=== PATIENT | female | born 1995 | race Caucasian/White ===

== ENCOUNTER 2016-07-21 15:07 | Inpatient (IN) ==
[2016-07-21] MEDS ORDERED: Ringers Solution, Lactated 1,000 ML IVC SCH (15:30)
[2016-07-21] MEDS ORDERED: Famotidine 20 MG/2 ML VIAL IVP PRN (15:30)
[2016-07-21] MEDS ORDERED: Naloxone 0.4 MG/ML INJ IVP PRN (15:30)
--- NOTE | 2016-07-21 15:55 | OB/GYN History & Physical ---
Date of Encounter: 07/21/16 Time of Encounter: 15:50 Assessment and Plan (1) 39 weeks gestation of Current visit: Yes Status: Acute -monitor for labor progression - consider duran for cervical ripening History of Present Illness HPI: Ms. Rita Freeman is a 21 year old female at 39 weeks and 6 days who is sent to the hospital for spontaneous laboring. She has smoked cigarettes throughout . She denies any other complications throughout her . She denies any SROM or vaginal leaking. She is complaining of mild contractions. Her cervix is 3-4 cm at the opening, but narrows to 1 cm near the head. Past Med Surg Social Fam HX - Past Medical History Medical history: no medical history Psychiatric history: anxiety, depression - Social History Smoking Status: Never smoker Smokeless Tobacco Status: No Alcohol use: none Drug use: none Obstetrical History - Pregnancies : 1 Para: 0 Medications and Allergies Acetaminophen [Tylenol] 650 mg PO Q6HR PRN 07/21/16 [History] [id number]/Iron Fumarate/FA/Dss [ 19 Tablet] 1 tab PO DAILY 07/21/16 [ History] Allergies No Known Allergies Allergy (Verified 05/16/16 12:23) Review of System OB All systems PM: reviewed and no additional remarkable complaints except as stated - Constitutional Constitutional ROS IM: headache(s) (intermittent throughout pregnanacy. None today), no fever(s) - Nose, mouth, and throat Nose, mouth and throat: no dizziness, no dysphagia, no vertigo - Cardiovascular Cardiovascular: pedal edema (after standing all day. Not at this time), no chest pain, no dyspnea, no lightheadedness - Respiratory Respiratory: no cough, no dyspnea, no chest congestion - Gastrointestinal Gastrointestinal: no abdominal pain, no cramping, no diarrhea, no hematemesis, no hematochezia, no loose stools, no melena, no nausea, no vomiting - Genitourinary Genitourinary: amenorrhea, no vaginal discharge - Integumentary Integumentary: no rash - Neurological Nerological: no dizziness, no loss of vision, no syncope Exam - Constitutional Constitutional: well developed, well nourished, no acute distress, average body habitus - HEENT HEENT: EOMI, PERRL, Normocephaly, Mucus Membranes Moist - Neck Neck exam: full ROM, normal inspection, trachea midline - Lungs Respiratory exam: CTAB - Cardiovascular Cardiovascular exam: RRR - Abdomen Abdomen: Present: bowel sounds normal, gravid, non tender - Extremities Extremities exam: normal capillary refill Deep Tendon Reflex Grade: 2+ Normal - Vagina Vagina: Present: normal moisture - Cervix Dilation: 1 Effacement: 50 Station: -3 - Uterus Uterus exam: Present: normal size, normal contour Results All other labs normal. - VTE Reasons for not Prescribing Prophylaxis: Treatment not Indicated - Low risk for VTE
[2016-07-21 16:17] LABS: Basophils % 0.3 %; Eosinophils % 0.3 %; Hematocrit 26.5 % (35.3-44.9); Hemoglobin 8.8 g/dL (11.5-15.4); Immature Granulocytes % 0.6 % (0-4); Mean Corpuscular HGB Conc 33.2 g/dL (31.6-35.5); Mean Corpuscular Hemoglobin 27.8 pg (28.0-33.3); Mean Corpuscular Volume 83.9 fL (83.0-100.0); Monocytes # 0.7 K/mcL (0.0-1.3); Monocytes % 6.1 %; Neutrophils # 8.4 K/mcL (1.6-8.9); Platelet Count 249 K/mcL (140-400); Red Blood Count 3.16 M/mcL (3.82-4.97); Red Cell Distribution Width 13.5 % (11.5-14.5); Segmented Neutrophils % 74.7 %
--- NOTE | 2016-07-21 16:29 | Anesthesia Evaluation PreOp ---
Date of Encounter: 07/21/16 Time of Encounter: 16:21 - Past History Planned Operation: vaginal del, , 39wk induction Cardiac History: Denies any Significant Hx Pulmonary History: Denies Any Significant HX STABBER History: Denies Any Significant HX, Other (left vaginal/inner thigh occ pain non-radiating not positional dependent) Other Medical History: Denies Any Significant HX Anesthesia History: No Prior Anesthetic Complications, Past Anesthesia Alcohol Use: none Drug use: none Medications and Allergies Acetaminophen [Tylenol] 650 mg PO Q6HR PRN 07/21/16 [History] [id number]/Iron Fumarate/FA/Dss [ 19 Tablet] 1 tab PO DAILY 07/21/16 [ History] Allergies No Known Allergies Allergy (Verified 05/16/16 12:23) Anesthesia Results - Labs 07/21/16 15:40 Anesthesia Exam - HEENT Pupil (Motor): Pupils equal Mallampati: II Teeth: Normal Oral Opening: Greater than 3 - STABBER LOC: Oriented STABBER Motor: Normal RUE, Normal LUE, Normal RLE, Normal LLE, Normal Face STABBER Sensory: Normal: RUE, LUE, RLE, LLE, Face - Cardiac Rhythm: Regular - Pulmonary Breath Sounds: bilateral Clear Respiratory Effort: Symmetrical Anesthesia Assess/Plan ASA Score: 2 Modified Sammy Scale for Level of Consciousness: Cooperative, oriented, and tranquil Anesthetic Plan: General, Regional Monitoring Plan: Standard Monitors
[2016-07-21 16:33] LABS: Alanine Aminotransferase 6 Units/L (0-55); Aspartate Amino Transferase 11 Units/L (5-34); BUN/Creatinine Ratio 9 (6-26); Lactate Dehydrogenase 145 Units/L (159-327); Uric Acid 3.3 mg/dL (2.6-6.0); eGFR For African Americans > 60 (> 60); eGFR For Non-African Americans > 60 (> 60)
[2016-07-21 16:34] LABS: Blood Urea Nitrogen 5 mg/dL (7-20)
[2016-07-21] MEDS ORDERED: *HR* Labetalol 20 MG/4 ML SYRINGE IVP ONE ×2 (17:00→17:02)
[2016-07-21] MEDS ORDERED: Epidural Premix (fent/bupiv) 110 ML EP ONE (18:25)
--- NOTE | 2016-07-22 00:18 | OB Labor Progress Note ---
Date of Encounter: 07/22/16 Time of Encounter: 00:15 Labor Progress Note - Subjective Subjective: Pt with mild uc's q 2-4 min. No VB or LOF. She declines repeat attempt at duran. - Vital Signs Vital Signs: 148/92 - Cervix Cervix: 2/70/-2 - Heart Tones Heart Tones: RNST - Interventions Interventions: Will begin Pitocin. - Plan Plan: Expect
[2016-07-22] MEDS ORDERED: Oxytocin 20 units/ LR 1000 mL 20 UNIT/1,000 ML BAG IVC SCH (00:28)
[2016-07-22] MEDS ORDERED: *HR* Labetalol 20 MG/4 ML SYRINGE IVP ONE ×2 (01:28→01:29)
--- NOTE | 2016-07-22 04:12 | OB Labor Progress Note ---
Date of Encounter: 07/22/16 Time of Encounter: 04:10 Labor Progress Note - Subjective Subjective: Pt comfortable, BP improved s/p Labetalol # 2. - Cervix Cervix: 3/80/-2 - Heart Tones Heart Tones: RNST - [place]: uc's q 2-3 min - Interventions Interventions: AROM ? light MSF without difficulty. - Plan Plan: Expect
--- NOTE | 2016-07-22 05:18 | Anesthesia Procedures ---
Date of Encounter: 07/22/16 Time of Encounter: 05:04 Procedures: Anesthesia - Epidural/Spinal Patient ID/Chart reviewed: Yes Patient examined: Yes OB Eval: Gestational age: term OB Eval: : 1 OB Eval: Hx Para: 0 OB Eval: Contractions: Non-stressed pattern Consent Obtained: Yes Supplemental Oxygen: None/Room Air Site Prep: Aseptic Technique, Sterile prep and drape, 0.5% Chlorhexidine/Alcohol Patient position: upright Local Anesthetic: Lidocaine 1% Amount of Local Anesthetic used: 2 Touhy Needle Gauge: 18 Touhy Needle Depth (cm): 6 Test Dose Result: Negative Loading Dose: Other: 12ml from solution Loading Dose Administered: Thru Catheter Infusion Med: 0.125% Bupivacaine w/ 2 mcg/ml Fentanyl Infusion Rate (mls/hr): [address]: Tegaderm, Tape Interspace Used: L3-L4 Loss of Resistance (MG): Yes (saline) Blood: No CSF: No Paresthesia: No Vitals + FHT's: vss though out, FHR stable per RN's
[2016-07-22] MEDS: Ondansetron 4 MG/2 ML VIAL IVP PRN ×2 (05:35→12:03)
[2016-07-22] MEDS ORDERED: *HR* Phenylephrine 10 MG/ML VIAL ONE (05:37)
--- NOTE | 2016-07-22 08:43 | OB Labor Progress Note ---
Date of Encounter: 07/22/16 Time of Encounter: 08:41 Labor Progress Note - Subjective Subjective: Patient comfortable with epidural. She denies any shortness of breath. She reports feeling rectal pressure. She is requesting to have her chucks changed - Vital Signs Vital Signs: Afebrile, blood pressure labile - Cervix Cervix: 4/90/0, vertex - Heart Tones Heart Tones: 120s baseline, CAT 1 - [place]: Ctx q 2' on 1 milliunit of Pitocin - Interventions Interventions: 39 week IUP with augmentation. Labile blood pressure, PIH labs normal, status post labetalol, history of anxiety. Meconium stained amniotic fluid - Plan Plan: Now with epidural doing well. IUPC placed. Pitocin DC'd. Continue to monitor blood pressures and treat as needed. Respiratory for delivery
--- NOTE | 2016-07-22 10:50 | OB Labor Progress Note ---
Date of Encounter: 07/22/16 Time of Encounter: 10:47 Labor Progress Note - Subjective Subjective: Patient resting on left side requesting position change. Patient denies any pain but reports pressure. IUPC no reading correctly discussed replacing IUPC with patient. Patient denies any questions or concerns. - Cervix Cervix: 8/90/0 - Heart Tones Heart Tones: 115 bpm moderate variability +15x15 accels early decels noted. - Tat Momoli Tat Momoli: every 2 min - Interventions Interventions: SVE, IUPC placed without difficulty. Patient repositioned to right side. - Plan Plan: Continue labor management.
[2016-07-22] MEDS ORDERED: Epidural Premix (fent/bupiv) 110 ML EP ONE (12:50)
--- NOTE | 2016-07-22 14:18 | OB/GYN Procedure Note ---
Delivery - Delivery Date: 07/22/16 Provider: Erika Mead Intrapartum events: meconium Delivery induction: AROM, oxytocin Delivery augmentation: pitocin Delivery monitor: external FHT, external uterine, internal uterine Anesthesia: epidural Estimated Blood Loss: 200 - Infant (s) A Infant Delivery Date: 07/22/16 Delivery Time: 13:41 Presentation: vertex Position: [place] Route of delivery: Gender: Female Viability: Viable Pounds: 7 Ounces: 2 at 1 minute: 8 at 5 mins: 9 Shoulder Dystocia: not encountered Placenta: spontaneous, uterine exploration Cord: nuchal cord, 3 umbilical vessels - Repair Episiotomy: none ( ) Laceration Description: Perineal - 2nd Degree, Labial (Bilateral, superficial and not repaired), Superficial - Complications Delivery complications: none Delivery comments: The patient was complete and pushing with epidural anesthesia was a spontaneous vaginal delivery in the FLORENTIN position of a vigorous female weighing 7 lbs. 2 oz. with Apgars of 8 at 1 minute and 9 at 5 minutes. There was a nuchal cord x1 which was reduced on the perineum. The infant was bulb suctioned on the perineum or light meconium-stained amniotic fluid was noted. The was placed on the maternal abdomen and the cord was clamped cut after pulsations ceased. Cord segment was obtained. Placenta was delivered spontaneous and intact. The uterus was explored and there were no retained products of conception. There were bilateral superficial labial lacerations which were hemostatic and not repaired. There was a second-degree midline laceration which was repaired with 3-0 Vicryl in usual fashion. Estimated blood loss 200 mL complications none. Both mother and were recovering in stable condition in the LDR. - Disposition Mom disposition: stable in LDR Floyd disposition: stable in LDR
[2016-07-22] MEDS ORDERED: Lidocaine 1% 20 ML MDV ONE (15:55)
--- NOTE | 2016-07-22 16:22 | OB/GYN Progress Note ---
Date of Encounter: 07/22/16 Time of Encounter: 16:17 - Assessment and Plan (1) Status post vaginal delivery Current Visit: Yes Status: Acute Right labial laceration actively bleeding repaired with 4-0 vicryl. Subjective - Subjective Principal diagnosis: 2 hours pp Interval history: Called to LDR to check vaginal bleeding. Bleeding appears to becoming from right labial laceration. Discussed POC and treatment options for patient. Patient wishes to have laceration repaired. Patient was placed in stirrups and 1 % lidocaine was used to numb area. 4-0 vicryl was used for running stitch to repair right labial laceration. Patient tolerated well. Ice pack to perineum. Sharps removed from sterile field and counts were correct. Patient in LDR for recovery. : doing well Objective - Latest Vital Signs Latest vital signs: Intake and Output 07/22/16 07/22/16 07/22/16 07:59 15:59 23:59 Output Total 600 / 600 Balance -600 / -600 Output: Catheter 600 / 600 - Labs Labs: Laboratory Results - last 24 hr 07/21/16 07/21/16 15:40 15:40 WBC 11.2 H RBC 3.16 L Hgb 8.8 L Hct 26.5 L MCV 83.9 MCH 27.8 L MCHC 33.2 RDW 13.5 Plt Count 249 MPV 11.0 Immature Gran % 0.6 Seg Neutrophils % 74.7 Lymphocytes % 18.0 Monocytes % 6.1 Eosinophils % 0.3 Basophils % 0.3 Neutrophils # 8.4 Lymphocytes # 2.0 Monocytes # 0.7 Eosinophils # 0.0 Basophils # 0.0 BUN 5 L Creatinine 0.58 Est GFR ( Amer) > 60 Est GFR (Non-Af Amer) > 60 BUN/Creatinine Ratio 9 Uric Acid 3.3 AST 11 ALT 6 Lactate Dehydrogenase 145 L
[2016-07-22] MEDS ORDERED: Oxytocin 20 units/ LR 1000 mL 20 UNIT/1,000 ML BAG IV SCH (16:31)
[2016-07-22] MEDS ORDERED: Oxytocin 20 units/ LR 1000 mL 20 UNIT/1,000 ML BAG IVC ONE (16:31)
[2016-07-22] MEDS: Ibuprofen 600 MG TABLET PO PRN (17:27)
[2016-07-23 05:01] LABS: Basophils % 0.2 %; Eosinophils % 0.1 %; Hematocrit 22.8 % (35.3-44.9); Hemoglobin 7.5 g/dL (11.5-15.4); Immature Granulocytes % 0.8 % (0-4); Lymphocytes % 11.7 %; Mean Corpuscular HGB Conc 32.9 g/dL (31.6-35.5); Mean Corpuscular Hemoglobin 27.7 pg (28.0-33.3); Mean Corpuscular Volume 84.1 fL (83.0-100.0); Monocytes # 1.2 K/mcL (0.0-1.3); Monocytes % 6.7 %; Neutrophils # 13.8 K/mcL (1.6-8.9); Platelet Count 211 K/mcL (140-400); Red Blood Count 2.71 M/mcL (3.82-4.97); Red Cell Distribution Width 13.7 % (11.5-14.5); Segmented Neutrophils % 80.5 %
[2016-07-23 05:17] LABS: Alanine Aminotransferase 7 Units/L (0-55); Aspartate Amino Transferase 19 Units/L (5-34); BUN/Creatinine Ratio 11 (6-26); Blood Urea Nitrogen 7 mg/dL (7-20); Lactate Dehydrogenase 220 Units/L (159-327); Uric Acid 3.3 mg/dL (2.6-6.0); eGFR For African Americans > 60 (> 60); eGFR For Non-African Americans > 60 (> 60)
[2016-07-23] MEDS ORDERED: Lanolin 7 G OINT...G. TP PRN (06:29)
[2016-07-23] MEDS: Prenatal Vit/FA 1 EACH TABLET PO SCH (08:33)
[2016-07-23] MEDS: Acetaminophen 325 MG TABLET PO PRN ×2 (08:42→15:55)
--- NOTE | 2016-07-23 08:52 | OB/GYN Progress Note ---
Date of Encounter: 07/23/16 Time of Encounter: 08:50 - Assessment and Plan (1) Status post vaginal delivery Current Visit: Yes Status: Acute Continue routine care Possible discharge home tomorrow (2) Anemia Current Visit: Yes Status: Acute Increase Ferrous sulfate BID Qualifiers: Anemia type: unspecified type Qualified Code(s): D64.9 - Anemia, unspecified (3) hypertension Current Visit: Yes Status: Acute Labetalol 200mg PO TID Subjective - Subjective Principal diagnosis: day 1 Interval history: Patient resting in bed. Denies feeling dizzy or light headed. Patient reports light bleeding. Denies headache or visual disturbances. Patient reports: appetite normal, voiding normally, pain well controlled, ambulating normally : doing well, bottle feeding Objective - Latest Vital Signs Latest vital signs: Vital Signs Temp Pulse Pulse Resp BP Pulse Ox 07/23/16 08:32 97.9 F 94 16 167/92 97 07/23/16 03:00 98.2 F 78 78 14 154/95 100 07/22/16 22:45 98.0 F 75 16 155/90 99 07/22/16 18:30 98.2 F 77 16 137/74 99 07/22/16 17:30 98.1 F 101 14 140/78 99 07/22/16 16:30 98.4 F 64 14 163/91 99 Intake and Output 07/22/16 07/23/16 07/23/16 23:59 07:59 15:59 Intake Total 0 / 0 800 / 800 500 / 500 Output Total 1680 / 1680 300 / 300 Balance -1680 / -1680 800 / 800 200 / 200 Intake: Oral 0 / 0 500 / 500 Intake, Autotransfusion 800 / 800 Amount Output: Urine 1680 / 1680 300 / 300 Other: Weight 62.2 kg Patient Weight 07/23/16 23:59 Weight 62.2 kg - Exam Lungs: bilateral: normal Chest: Normal S1, Normal S2 Extremities: Present: normal Abdomen: Present: normal appearance, soft, gravid Uterus: Present: normal, firm Uterus Position: 1 Finger Below Umbilicus, Midline - Labs Labs: Laboratory Results - last 24 hr 07/23/16 07/23/16 04:40 04:40 WBC 17.1 H D RBC 2.71 L Hgb 7.5 L Hct 22.8 L MCV 84.1 MCH 27.7 L MCHC 32.9 RDW 13.7 Plt Count 211 MPV 11.0 Immature Gran % 0.8 Seg Neutrophils % 80.5 Lymphocytes % 11.7 Monocytes % 6.7 Eosinophils % 0.1 Basophils % 0.2 Neutrophils # 13.8 H Lymphocytes # 2.0 Monocytes # 1.2 Eosinophils # 0.0 Basophils # 0.0 BUN 7 Creatinine 0.61 Est GFR ( Amer) > 60 Est GFR (Non-Af Amer) > 60 BUN/Creatinine Ratio 11 Uric Acid 3.3 AST 19 ALT 7 Lactate Dehydrogenase 220
[2016-07-23 18:15] LABS: Hematocrit 22.7 % (35.3-44.9); Hemoglobin 7.2 g/dL (11.5-15.4)
[2016-07-24] MEDS: Ibuprofen 600 MG TABLET PO PRN ×2 (01:42→07:55)
[2016-07-24 06:31] LABS: Basophils % 0.3 %; Eosinophils % 0.3 %; Hematocrit 21.8 % (35.3-44.9); Immature Granulocytes % 0.6 % (0-4); Lymphocytes # 1.8 K/mcL (0.6-4.6); Lymphocytes % 16.9 %; Mean Corpuscular HGB Conc 32.1 g/dL (31.6-35.5); Mean Corpuscular Hemoglobin 27.3 pg (28.0-33.3); Mean Corpuscular Volume 85.2 fL (83.0-100.0); Mean Platelet Volume 10.7 fL (9.4-12.4); Monocytes # 0.6 K/mcL (0.0-1.3); Monocytes % 5.7 %; Neutrophils # 8.1 K/mcL (1.6-8.9); Platelet Count 190 K/mcL (140-400); Red Blood Count 2.56 M/mcL (3.82-4.97); Red Cell Distribution Width 13.8 % (11.5-14.5); Segmented Neutrophils % 76.2 %
[2016-07-24] MEDS: Prenatal Vit/FA 1 EACH TABLET PO SCH (07:55)
--- NOTE | 2016-07-24 10:11 | OB/GYN Progress Note ---
Date of Encounter: 07/24/16 Time of Encounter: 10:09 - Assessment and Plan (1) Status post vaginal delivery Current Visit: Yes Status: Acute Continue routine care Possible discharge home tomorrow (2) Anemia Current Visit: Yes Status: Acute Increase Ferrous sulfate BID Blood transfusion Qualifiers: Anemia type: unspecified type Qualified Code(s): D64.9 - Anemia, unspecified (3) hypertension Current Visit: Yes Status: Acute Labetalol 200mg PO TID (4) Breast feeding status of mother Current Visit: Yes Status: Acute support prn (5) Anxiety and depression Current Visit: Yes Status: Acute Will start Zoloft 50mg po daily Subjective - Subjective Principal diagnosis: day 2 Interval history: Patient crying when CNM came in room. Patient reports history of anxiety and depression since she was in the 8th grade. Patient is not currently on any medication. Will start Zoloft 50mg po. Patient denies feelings of hurting herself or others. Patient is breast feeding female infant. Patient reports light bleeding. Patient is currently receiving blood for low hgb with cbc to be repeated 4 hours after transfusion. Patient reports: appetite normal, voiding normally, pain well controlled, ambulating normally : doing well, nursing well Objective - Latest Vital Signs Latest vital signs: Vital Signs Temp Pulse Resp BP Pulse Ox 07/24/16 09:34 68 16 158/97 98 07/24/16 09:10 98.0 F 70 16 150/90 98 07/24/16 07:30 98.1 F 68 16 133/92 07/24/16 03:45 98.1 F 73 16 151/85 07/24/16 00:15 73 146/88 07/23/16 23:57 97.8 F 84 16 159/87 99 07/23/16 20:00 97.4 F L 65 16 144/96 100 07/23/16 16:00 97.7 F 65 16 136/90 99 07/23/16 12:05 97.9 F 90 16 140/95 98 Intake and Output 07/23/16 07/24/16 07/24/16 23:59 07:59 15:59 Intake Total 1100 / 1100 800 / 800 50 / 50 Output Total 950 / 950 1400 / 1400 Balance 150 / 150 -600 / -600 50 / 50 Intake: Oral 1100 / 1100 800 / 800 Blood Product 50 / 50 Rbcs Leuko Poor As-1 50 / 50 Unit [id number] Output: Urine 950 / 950 1400 / 1400 Other: Weight 59.109 kg Patient Weight 07/24/16 23:59 Weight 59.109 kg - Exam Lungs: bilateral: normal Chest: Normal S1, Normal S2 Extremities: Present: normal Abdomen: Present: normal appearance, soft Uterus: Present: normal, firm Uterus Position: 2 Fingers Below Umbilicus, Midline - Labs Labs: Laboratory Results - last 24 hr 07/23/16 07/23/16 07/24/16 17:21 17:21 06:08 WBC 10.6 RBC 2.56 L Hgb 7.2 L 7.0 L Hct 22.7 L 21.8 L MCV 85.2 MCH 27.3 L MCHC 32.1 RDW 13.8 Plt Count 190 MPV 10.7 Immature Gran % 0.6 Seg Neutrophils % 76.2 Lymphocytes % 16.9 Monocytes % 5.7 Eosinophils % 0.3 Basophils % 0.3 Neutrophils # 8.1 Lymphocytes # 1.8 Monocytes # 0.6 Eosinophils # 0.0 Basophils # 0.0 Blood Type A POSITIVE Antibody Screen NEGATIVE Crossmatch See Detail
[2016-07-24 21:20] LABS: Basophils % 0.3 %; Eosinophils % 0.3 %; Immature Granulocytes % 0.9 % (0-4); Lymphocytes # 1.3 K/mcL (0.6-4.6); Lymphocytes % 12.3 %; Mean Corpuscular HGB Conc 33.1 g/dL (31.6-35.5); Mean Corpuscular Hemoglobin 27.8 pg (28.0-33.3); Mean Corpuscular Volume 84.1 fL (83.0-100.0); Mean Platelet Volume 10.3 fL (9.4-12.4); Monocytes # 0.6 K/mcL (0.0-1.3); Monocytes % 5.8 %; Neutrophils # 8.6 K/mcL (1.6-8.9); Nucleated Red Blood Cells 0.2 /100 WBC (0); Platelet Count 230 K/mcL (140-400); Red Blood Count 3.45 M/mcL (3.82-4.97); Red Cell Distribution Width 14.1 % (11.5-14.5); Segmented Neutrophils % 80.4 %
[2016-07-24 21:21] LABS: Hemoglobin 9.6 g/dL (11.5-15.4)
[2016-07-25] MEDS: Ibuprofen 600 MG TABLET PO PRN (00:53)
[2016-07-25] MEDS ORDERED: *HR* Labetalol 20 MG/4 ML SYRINGE IVP ONE ×4 (01:16→02:00)
[2016-07-25] MEDS ORDERED: Ringers Solution, Lactated 1,000 ML ONE ×2 (01:31→14:11)
--- NOTE | 2016-07-25 01:41 | OB/GYN Progress Note ---
Date of Encounter: 07/25/16 Time of Encounter: 01:34 - Assessment and Plan (1) Status post vaginal delivery Current Visit: Yes Status: Acute I was called because patient had severe range pressures 190'/110's. She called out saying she didn't feel weel( she had just gone outside to smoke). I reviewed her vitals and she has steadily developed worsening HTN PP and was placed on Labetalol 200mg TID, I'm concerned about PP preeclampsia so we are drawing pre eclampsia labs inclding pr-cr ratio, We will start Mg for seizure ppx, insert duran for accurate measurement of urine , will increase labetalol to 400mg BID Objective - Latest Vital Signs Latest vital signs: Vital Signs Temp Pulse Pulse Resp BP Pulse Ox 07/24/16 20:30 66 07/24/16 19:45 98.4 F 77 16 159/95 98 07/24/16 12:51 97.8 F 16 162/88 98 07/24/16 12:38 98.4 F 68 16 157/92 98 07/24/16 12:35 98.5 F 78 16 155/92 07/24/16 09:34 68 16 158/97 98 07/24/16 09:10 98.0 F 70 16 150/90 98 07/24/16 07:30 98.1 F 68 16 133/92 07/24/16 03:45 98.1 F 73 16 151/85 Intake and Output 07/24/16 07/24/16 07/25/16 15:59 23:59 07:59 Intake Total 225 / 225 420 / 420 Output Total 1000 / 1000 Balance 225 / 225 -580 / -580 Intake: Oral 120 / 120 Blood Product 225 / 225 300 / 300 Rbcs Leuko Poor As-1 175 / 175 Unit [id number] Rbcs Leuko Poor As-1 50 / 50 300 / 300 Unit [id number] Output: Urine 1000 / 1000 Other: Meal Dinner Percent of Meal Consumed 70% Stool Characteristics Normal for Patient Weight 59.1 kg Patient Weight 07/25/16 23:59 Weight 59.1 kg - Labs Labs: Laboratory Results - last 24 hr 07/23/16 07/24/16 07/24/16 17:21 06:08 21:08 WBC 10.6 10.7 RBC 2.56 L 3.45 L Hgb 7.0 L 9.6 L D Hct 21.8 L 29.0 L MCV 85.2 84.1 MCH 27.3 L 27.8 L MCHC 32.1 33.1 RDW 13.8 14.1 Plt Count 190 230 MPV 10.7 10.3 Immature Gran % 0.6 0.9 Seg Neutrophils % 76.2 80.4 Lymphocytes % 16.9 12.3 Monocytes % 5.7 5.8 Eosinophils % 0.3 0.3 Basophils % 0.3 0.3 Neutrophils # 8.1 8.6 Lymphocytes # 1.8 1.3 Monocytes # 0.6 0.6 Eosinophils # 0.0 0.0 Basophils # 0.0 0.0 Nucleated RBCs/100 WBC 0.2 H Blood Type A POSITIVE Antibody Screen NEGATIVE Crossmatch See Detail
[2016-07-25 01:50] LABS: Basophils % 0.3 %; Eosinophils # 0.1 K/mcL (0.0-0.6); Eosinophils % 0.6 %; Hematocrit 28.8 % (35.3-44.9); Hemoglobin 9.5 g/dL (11.5-15.4); Lymphocytes # 1.7 K/mcL (0.6-4.6); Mean Corpuscular Hemoglobin 27.5 pg (28.0-33.3); Mean Corpuscular Volume 83.5 fL (83.0-100.0); Mean Platelet Volume 10.1 fL (9.4-12.4); Monocytes # 0.8 K/mcL (0.0-1.3); Monocytes % 6.4 %; Neutrophils # 9.2 K/mcL (1.6-8.9); Platelet Count 217 K/mcL (140-400); Red Blood Count 3.45 M/mcL (3.82-4.97); Red Cell Distribution Width 14.1 % (11.5-14.5); Segmented Neutrophils % 77.7 %
[2016-07-25 02:01] LABS: Alanine Aminotransferase 11 Units/L (0-55); Aspartate Amino Transferase 22 Units/L (5-34); BUN/Creatinine Ratio 15 (6-26); Blood Urea Nitrogen 10 mg/dL (7-20); Lactate Dehydrogenase 194 Units/L (159-327); eGFR For African Americans > 60 (> 60); eGFR For Non-African Americans > 60 (> 60)
[2016-07-25 02:02] LABS: Uric Acid 4.7 mg/dL (2.6-6.0)
[2016-07-25 02:11] LABS: Creatinine,Urine 38 mg/dL; Protein/Creatinine Ratio,Urine 0.18 mg/mg (0-0.20)
[2016-07-25] MEDS: Magnesium Sulfate 20 gm/500mL 20 GM/500 ML IV.SOLN IVC SCH ×3 (02:20→20:10)
[2016-07-25] MEDS ORDERED: Calcium Gluconate 1,000 MG/10 ML VIAL IVPB ONE (03:08)
[2016-07-25] MEDS: Prenatal Vit/FA 1 EACH TABLET PO SCH (08:06)
[2016-07-25] MEDS: Acetaminophen 325 MG TABLET PO PRN ×2 (12:42→20:09)
--- NOTE | 2016-07-25 14:24 | Event Note ---
<Selene Cunningham - Last Filed: 07/25/16 14:24> Date of Encounter: 07/25/16 Time of Encounter: 14:18 Patient is currently on 2g of magnesium due to elevated blood pressures (190 systolic) last night. This morning patient's blood pressures were improved in the 120s-130s/80s. This afternoon, patient reports worsening headache and blood pressures up slightly in the 140s/80s range. Patient reports that she has had a headache all day but that it is getting worse. She says that it is pain behind her eyes but she denies any changes in vision at this time. On exam , patient is awake and alert. Patellar reflexes are 2+ bilaterally, no clonus. Will continue magnesium at 2g for 24 hours (2am) and the labetalol at 400mg BID. Will continue to monitor blood pressures. If needed, we can increase labetalol dose for blod pressures. Continue seizure precautions and bed rest. <Erika Mead - Last Filed: 07/25/16 15:19> Date of Encounter: 07/25/16 I examined this patient and my medical decision-making was reviewed with the ROLL ON MAN/PA/Advanced Practice Nurse/Resident Physician. I agree with the documented findings, disposition and treatment plan as described except to the extent set forth below.
[2016-07-25] MEDS ORDERED: Ondansetron ODT 4 MG TAB.RAPDIS SL ONE (22:02)
--- NOTE | 2016-07-25 22:22 | Event Note ---
<Selene Cunningham - Last Filed: 07/25/16 22:23> Date of Encounter: 07/25/16 Time of Encounter: 22:15 Called to the patient's room by nursing because the patient became nauseous and vomited. Patient is still on 2g magnesium for seizure prophylaxis. Blood pressures have been running in the s 140s/80s-90s today. Patient reports that her headache is still there but it has improved. She states that she feels hot and nauseous. On, exam patient is awake and oriented. Patellar reflexes are 2 + bilaterally. She continues to have adequate urine output. Will decrease the Mg to 1g through the remainder of the 48hrs (2am tonight). Will give 8mg sublingual zofran for symptom control. Will continue to monitor patient's blood pressures, urine output and reflexes. <Erika Mead - Last Filed: 07/26/16 07:31> Date of Encounter: 07/26/16 I examined this patient and my medical decision-making was reviewed with the P[employer] PRESS TENDER/PA/Advanced Practice Nurse/Resident Physician. I agree with the documented findings, disposition and treatment plan as described except to the extent set forth below.
[2016-07-26] MEDS: Prenatal Vit/FA 1 EACH TABLET PO SCH (08:55)
[2016-07-26] MEDS: NIFEdipine XL (24 HR) 60 MG TAB.ER.24 PO SCH (09:25)
--- NOTE | 2016-07-26 10:57 | OB/GYN Progress Note ---
Date of Encounter: 07/26/16 Time of Encounter: 10:46 - Assessment and Plan (1) Status post vaginal delivery Current Visit: Yes Status: Acute Mg has been stopped and Procardia 60mg BID added to her regimen will keep her one more day to make sure this regimen works for her, Cont BP monitoring, cont current inpt care Subjective - Subjective Patient reports: appetite normal, voiding normally, pain well controlled, ambulating normally : doing well, nursing well Objective - Latest Vital Signs Latest vital signs: Vital Signs Temp Pulse Resp BP Pulse Ox 07/26/16 07:51 98.1 F 94 20 145/83 97 07/26/16 06:55 156/94 07/26/16 06:50 134/84 07/26/16 05:46 170/90 07/26/16 05:45 164/101 07/26/16 05:17 162/86 07/26/16 05:15 98.2 F 72 20 149/103 100 07/26/16 02:30 144/91 07/26/16 01:05 77 16 128/75 07/26/16 00:00 81 20 133/78 07/25/16 23:00 74 16 130/80 07/25/16 22:00 88 24 147/91 07/25/16 21:00 72 20 147/89 07/25/16 20:00 97.8 F 75 20 153/95 99 07/25/16 19:00 97.8 F 77 149/88 07/25/16 18:00 88 16 113/79 07/25/16 17:10 84 16 144/83 07/25/16 16:10 97.7 F 87 14 142/84 98 07/25/16 15:00 78 16 143/83 07/25/16 13:56 75 18 148/90 07/25/16 13:00 82 16 140/81 07/25/16 12:05 92 16 126/76 07/25/16 11:00 92 14 129/74 Intake and Output 07/25/16 07/26/16 07/26/16 23:59 07:59 15:59 Intake Total 1700 / 1700 1090 / 1090 240 / 240 Output Total 2705 / 2705 480 / 480 Balance -1005 / -1005 610 / 610 240 / 240 Intake: IV Fluids 500 / 500 190 / 190 Magnesium Sulfate 20 gm/ 500 / 500 190 / 190 500mL Premix 20 gm In 500 ml @ 2 GM/HR 50 mls/hr IVC .Q10H MITUL Rx#: [id number] Oral 1200 / 1200 900 / 900 240 / 240 Output: Urine 1225 / 1225 380 / 380 Catheter 1480 / 1480 100 / 100 Other: Meal Apple Breakfast Percent of Meal Consumed 50% Stool Size Moderate Moderate Stool Characteristics Normal for Patient Normal for Patient # Voids 1 # Bowel Movements 1 Weight 55.973 kg Patient Weight 07/26/16 23:59 Weight 55.973 kg - Exam Lungs: bilateral: normal Chest: Normal S1, Normal S2 Extremities: Present: normal Abdomen: Present: normal appearance Uterus: Present: normal
[2016-07-26] MEDS: Acetaminophen 325 MG TABLET PO PRN (15:35)
[2016-07-26] MEDS: Ibuprofen 600 MG TABLET PO PRN (19:54)
[2016-07-27] MEDS: Prenatal Vit/FA 1 EACH TABLET PO SCH (07:44)
[2016-07-27] MEDS: Ibuprofen 600 MG TABLET PO PRN (07:44)
[2016-07-27] MEDS: NIFEdipine XL (24 HR) 60 MG TAB.ER.24 PO SCH (08:33)
--- NOTE | 2016-07-27 08:40 | Discharge Summary ---
Date of Encounter: 07/27/16 Time of Encounter: 08:38 - Discharge Diagnosis (1) Anemia Priority: Secondary Status: Acute Comments: Pt with anemia now s/p 2 units PRBC's. She denies s/sx anemia. Home on iron. Qualifiers: Anemia type: unspecified type Qualified Code(s): D64.9 - Anemia, unspecified (2) Anxiety and depression Priority: Secondary Status: Acute Comments: Pt reports anxiety due to issues with the father of the baby. She plans to go home with her family rather than the father. (3) Breast feeding status of mother Priority: Secondary Status: Acute (4) hypertension Priority: Secondary Status: Acute Comments: Blood pressure normal to mild range on Labetalol and Procardia. She received 48 hours magnesium sulfate. Plan to discharge home on medications and pt to monitor BP at home. Pt to follow-up in office in 1 week for blood pressure check. (5) Status post vaginal delivery Priority: Primary Status: Acute Comments: Pt meeting milestones. - Discharge Medications Prescriptions: Ibuprofen [Motrin] 600 mg PO Q6HR PRN #30 tablet PRN Reason: Cramping Breast Pump [BREAST PUMP] 1 each .ROUTE AD #1 each Docusate [Colace] 100 mg PO BID #60 capsule Ferrous Sulfate 325 mg PO DAILY #30 tablet Labetalol HCl 400 mg PO BID #120 tablet NIFEdipine XL (24 HR) [Procardia XL] 60 mg PO DAILY #30 tab.er.24 Sertraline [Zoloft] 50 mg PO DAILY #30 tablet Home Medications: Acetaminophen [Tylenol] 650 mg PO Q6HR PRN 07/21/16 [History] [id number]/Iron Fumarate/FA/Dss [ 19 Tablet] 1 tab PO DAILY 07/21/16 [ History] Breast Pump [BREAST PUMP] 1 each .ROUTE AD #1 each 07/24/16 [Rx] Docusate [Colace] 100 mg PO BID #60 capsule 07/27/16 [Rx] Ferrous Sulfate 325 mg PO DAILY #30 tablet 07/27/16 [Rx] Ibuprofen [Motrin] 600 mg PO Q6HR PRN #30 tablet 07/27/16 [Rx] Labetalol HCl 400 mg PO BID #120 tablet 07/27/16 [Rx] Lanolin [Lansinoh] 1 appl TP TID PRN #0 oint...g. 07/27/16 [Rx] NIFEdipine XL (24 HR) [Procardia XL] 60 mg PO DAILY #30 tab.er.24 07/27/16 [Rx] Sertraline [Zoloft] 50 mg PO DAILY #30 tablet 07/27/16 [Rx] Allergies/Adverse Reactions: Allergies No Known Allergies Allergy (Verified 05/16/16 12:23) Data Procedures and tests throughout hospitalization: Laboratory Tests 07/21/16 07/21/16 07/23/16 15:40 15:40 04:40 WBC 11.2 H 17.1 H D RBC 3.16 L 2.71 L Hgb 8.8 L 7.5 L Hct 26.5 L 22.8 L MCV 83.9 84.1 MCH 27.8 L 27.7 L MCHC 33.2 32.9 RDW 13.5 13.7 Plt Count 249 211 MPV 11.0 11.0 Immature Gran % 0.6 0.8 Seg Neutrophils % 74.7 80.5 Lymphocytes % 18.0 11.7 Monocytes % 6.1 6.7 Eosinophils % 0.3 0.1 Basophils % 0.3 0.2 Neutrophils # 8.4 13.8 H Lymphocytes # 2.0 2.0 Monocytes # 0.7 1.2 Eosinophils # 0.0 0.0 Basophils # 0.0 0.0 Nucleated RBCs/100 WBC BUN 5 L Creatinine 0.58 Est GFR ( Amer) > 60 Est GFR (Non-Af Amer) > 60 BUN/Creatinine Ratio 9 Uric Acid 3.3 AST 11 ALT 6 Lactate Dehydrogenase 145 L Urine Creatinine Protein/Creatinin Ratio Urine Total Protein Blood Type Antibody Screen Crossmatch 07/23/16 07/23/16 07/23/16 04:40 17:21 17:21 WBC RBC Hgb 7.2 L Hct 22.7 L MCV MCH MCHC RDW Plt Count MPV Immature Gran % Seg Neutrophils % Lymphocytes % Monocytes % Eosinophils % Basophils % Neutrophils # Lymphocytes # Monocytes # Eosinophils # Basophils # Nucleated RBCs/100 WBC BUN 7 Creatinine 0.61 Est GFR ( Amer) > 60 Est GFR (Non-Af Amer) > 60 BUN/Creatinine Ratio 11 Uric Acid 3.3 AST 19 ALT 7 Lactate Dehydrogenase 220 Urine Creatinine Protein/Creatinin Ratio Urine Total Protein Blood Type A POSITIVE Antibody Screen NEGATIVE Crossmatch See Detail 07/24/16 07/24/16 07/25/16 06:08 21:08 01:30 WBC 10.6 10.7 11.8 H RBC 2.56 L 3.45 L 3.45 L Hgb 7.0 L 9.6 L D 9.5 L Hct 21.8 L 29.0 L 28.8 L MCV 85.2 84.1 83.5 MCH 27.3 L 27.8 L 27.5 L MCHC 32.1 33.1 33.0 RDW 13.8 14.1 14.1 Plt Count 190 230 217 MPV 10.7 10.3 10.1 Immature Gran % 0.6 0.9 1.0 Seg Neutrophils % 76.2 80.4 77.7 Lymphocytes % 16.9 12.3 14.0 Monocytes % 5.7 5.8 6.4 Eosinophils % 0.3 0.3 0.6 Basophils % 0.3 0.3 0.3 Neutrophils # 8.1 8.6 9.2 H Lymphocytes # 1.8 1.3 1.7 Monocytes # 0.6 0.6 0.8 Eosinophils # 0.0 0.0 0.1 Basophils # 0.0 0.0 0.0 Nucleated RBCs/100 WBC 0.2 H BUN Creatinine Est GFR ( Amer) Est GFR (Non-Af Amer) BUN/Creatinine Ratio Uric Acid AST ALT Lactate Dehydrogenase Urine Creatinine Protein/Creatinin Ratio Urine Total Protein Blood Type Antibody Screen Crossmatch 07/25/16 07/25/16 01:30 01:53 WBC RBC Hgb Hct MCV MCH MCHC RDW Plt Count MPV Immature Gran % Seg Neutrophils % Lymphocytes % Monocytes % Eosinophils % Basophils % Neutrophils # Lymphocytes # Monocytes # Eosinophils # Basophils # Nucleated RBCs/100 WBC BUN 10 Creatinine 0.68 Est GFR ( Amer) > 60 Est GFR (Non-Af Amer) > 60 BUN/Creatinine Ratio 15 Uric Acid 4.7 D AST 22 ALT 11 Lactate Dehydrogenase 194 Urine Creatinine 38 Protein/Creatinin Ratio 0.18 Urine Total Protein < 7 Blood Type Antibody Screen Crossmatch Date of admission: 07/21/16 15:07 Primary care physician: Luis A Law MD Consults: 07/22/16 16:31 Consult to Rand Cementer [CONS] Routine Comment: Vaginal delivery, consult needed Consult to Wire Turning Machine Operator [CONS] Routine Reason for SW Consult: cord stat Discharging clinician: Allyn Alamo Anticipated date of discharge: 07/27/16 - Patient Status Disposition: Home, Self-Care Condition: Good Functional capacity at discharge: independent ambulation Overall status at discharge: patient is progressing back to baseline - Discharge Instructions Follow Up With: Luis A Law MD [Primary Care Provider] - Kalia Resendiz MD [Partnered Physician] - Additional Instructions: Perineal Care: Always wipe front to back Change your pad frequently Use your keith bottle with warm water and spray front to back Do not douche, use tampons, have sexual intercourse or put anything in your vagina for 4-6 weeks after delivery Bleeding: Vaginal bleeding can last up to 6 weeks Your menstrual period may return as early as 6 weeks after you are discharged from the hospital [place]/Stitches Care: Vaginal Delivery Vaginal stitches will dissolve within 4-6 weeks Follow perineal care instructions Care Stitches will dissolve on their own If you have walker, they will need to be removed in the doctors office within 5-7 days. You may shower with stitches or walker Drip plan or soapy water over the incision to clean. Pat dry gently with a clean towel. Make sure you completely dry under the skin folds DO NOT USE powders, lotions, rubbing alcohol or hydrogen peroxide on or around your incision. This will slow your wound healing It is normal to have soreness, burning, tingling, itchiness and/or numbness as your incision heals Activity: Rest frequently Do not lift anything heavier than a gallon of milk, up to 10-15 pounds No driving for 1-2 weeks for Vaginal delivery No driving for 2-4 weeks for delivery Take stairs slowly, one at a time Gradually increase your daily activity until you are back to your normal routine Do not exercise until you have had your follow-up appointment Bathing: Take a shower daily Do not take a tub bath for the first 4 weeks Diet: Drink plenty of water and fruit juices Eat a well-balanced diet with foods high in fiber such as fruits and vegetables Depression: Your hormones have a major impact on your feelings and emotions. Hormone imbalance may cause changes in your mood, creating unfamiliar thoughts and actions. Support is available to help you understand and cope with these feelings and mood changes. If you answer yes to any of the following questions, please call your health care provider: Are you having trouble sleeping? Are you feeling isolated? Have you lost your appetite? Are you having thoughts of hurting yourself or others? WARNING SIGNS: Heavy bleeding from the vagina (blood is bright red and soaks a sanitary pad in an hour or less.) Passing a blood clot larger than your fist Discharge from the vagina that has a bad odor Temperature over 100.4 F, or if you feel cold and have chills An episiotomy site that is warm, swollen or oozing. Use a mirror if needed Urination (pee) that is painful, very red and swollen or leaking fluid An incision that is painful, very red and swollen and leaking fluid An incision that has come open Breasts that are painful or full with flu like symptoms Redness, warmth or swelling in the calf of your leg Trouble breathing, dizziness, visual disturbance or faintness *Notify your health care provider immediately or go to the nearest Emergency Room if you experience any of the above signs.* To contact the nurses station 24 hours a day, For non-urgent, routine questions, please call the office at - Diet and Activity Activity: increase activity as tolerated Diet: advance to your usual diet Hospital Course Reason for admission: induction of labor Delivery: Episiotomy: none ( ) Laceration: 2nd degree Other procedures: none complications: transfusion, other (preeclampsia) Discharge diagnosis: IUP at term delivered baby: female Hospital course: - Delivery Date: 07/22/16 Provider: Erika Mead Intrapartum events: meconium Delivery induction: AROM, oxytocin Delivery augmentation: pitocin Delivery monitor: external FHT, external uterine, internal uterine Anesthesia: epidural Estimated Blood Loss: 200 - Infant (s) A Infant Delivery Date: 07/22/16 Infant Delivery Time: 13:41 Presentation: vertex Position: FLORENTIN Route of delivery: Gender: Female Viability: Viable Pounds: 7 Ounces: 2 at 1 minute: 8 at 5 mins: 9 Shoulder Dystocia: not encountered Placenta: spontaneous, uterine exploration Cord: nuchal cord, 3 umbilical vessels - Repair Episiotomy: none ( ) Laceration Description: Perineal - 2nd Degree, Labial (Bilateral, superficial and not repaired), Superficial - course Complictions: Hypertension- 48 hours of magnesium, home on labetalol and procardia, anemia- 2units PRBC's, home on iron Time Attestation: Total time spent providing and/or coordinating discharge services: Time Spent: Less than 30 minutes Exam - Constitutional Vitals: Temp Pulse Resp BP Pulse Ox 99.0 F 96 16 155/90 98 07/27/16 07:30 07/27/16 07:30 07/27/16 07:52 07/27/16 07:30 07/27/16 07:30 General appearance IM: A&O X 3, pleasant, no acute distress - Respiratory Respiratory exam: Present: CTAB - Cardiovascular Cardiovascular exam IM: Present: RRR, +S1, +S2 - GI/Abdominal GI/Abdominal exam IM: soft, no peritoneal signs - Rectal Rectal exam: deferred - Uterine Tone: Firm Uterus Position: 3 Fingers Below Umbilicus - Extremities Exam Extremities exam IM: Present: normal capillary refill, normal inspection - Neurological Exam Neurological exam: normal gait, oriented X3 - Psychiatric Additional comments: reports some situational anxiety
[2016-07-27 09:43] VITALS: BP 148/86
== END 2016-07-27 11:08 | disposition home or self-care (01) | DRG 774 ==
LOC: 1NENULAB 15:07
PROVIDERS: ADMIT Obstetrics & Gynecology; ATTEND Obstetrics & Gynecology